=== PATIENT | male | born 1960 | race Caucasian/White ===

== ENCOUNTER 2020-01-23 10:31 | Inpatient (IN) | payer OTHER ==
--- NOTE | 2020-01-23 14:17 | HP ---
SUPERVISING PHYSICIAN: Gadiel Hillman MD CHIEF COMPLAINT: COVID infection with worsening shortness of breath. HISTORY OF PRESENT ILLNESS: Mr. Rolon is a 59-year-old male patient that was recently diagnosed with COVID-19 infection and was treated on 01/23/20 with azithromycin. He was actually seen on 01/16/20 via Telemedicine and tested at that point and found to be positive for coronavirus. He does have a significant medical history for diabetes, hypertension and having been treated in the past for non-Hodgkin lymphoma. He endorsed that he has been having general fatigue, dizziness, diarrhea which is persistent and worsening shortness of breath with productive cough. It seems like he is not moving a lot of air at times and actually at one point was almost ready to call 911 but actually went to the walk-in clinic. He was seen by Telemedicine by Dr. Terrell today with labs showing white count 10,900 with a left shift and inflammatory markers significantly elevated with ESR 110, C-reactive protein 16.8. D-dimer was elevated at 679 as well as fibrinogen. Kidney functions show creatinine 1.33. Dr. Terrell requested the patient be admitted for COVID pneumonia for further workup and evaluation as on his Telemedicine visit the patient was obviously dyspneic and looked to be in mild respiratory distress. On admission, the patient was not in distress, he was alert and fairly stable. PAST MEDICAL HISTORY: 1. Non-Hodgkin lymphoma first diagnosed in 2013 and treated to cure, released in 2019 after chemotherapy. 2. Hypertension. 3. Diabetes mellitus, type 2, on oral therapy. 4. Coronary artery disease with 3 previous myocardial infarctions and stent placement. PAST SURGICAL HISTORY: 1. Appendectomy. 2. Port placement for chemotherapy with removal. MEDICATIONS: 1. Chlorthalidone 25 mg daily. 2. Aspirin 81 mg daily. 3. Brilinta 90 mg b.i.d. 4. Amlodipine 10 mg daily. 5. TriCor 48 mg daily. 6. Lipitor 80 mg b.i.d. 7. Prinivil 20 mg b.i.d. 8. Coreg 12.5 mg b.i.d. 9. Metformin 500 mg b.i.d. ALLERGIES: NO KNOWN DRUG ALLERGIES. FAMILY HISTORY: Reviewed and noncontributory. SOCIAL HISTORY: The patient lives in [place], [place]. He is . He currently works in the [employer]. He denies any alcohol or illicit drug use. He denies tobacco abuse. REVIEW OF SYSTEMS: CONSTITUTIONAL: Positive for general malaise, fevers, chills. No noted unintentional weight loss. HEENT: Positive for headache, nasal congestion and rhinorrhea. Negative for sore throats, earaches, vision changes. RESPIRATORY: As noted in history of present illness, increasing shortness of breath with cough, nonproductive. CARDIOVASCULAR: Negative for chest pain, palpitations or syncopal episodes. GASTROINTESTINAL: Positive for diarrhea. Negative for nausea, vomiting, constipation or abdominal pain. GENITOURINARY: Negative for dysuria, hematuria, polyuria. MUSCULOSKELETAL: Negative for arthralgias, joint swelling. SKIN: Negative for lesions, rashes, moles or unexplained changes. NEUROLOGIC: Negative for ataxia, seizures, headaches, vision changes, syncopal episodes, other focal motor deficits. HEMATOLOGIC: Negative for easy bruising, unexplained bleeding or transfusion reactions. PHYSICAL EXAMINATION: VITAL SIGNS: On initial admission, temperature 97.6, pulse 92, blood pressure 134/74, respirations 18 to 22, 90% saturation on room air. GENERAL: The patient does look ill, overall does not feel well. He is alert. He does not look to be in any distress. HEENT: Tympanic membranes clear bilaterally. Oropharynx is pink, mildly dry mucous membranes. NECK: Supple, nontender with full range of motion. No jugular venous distention noted. RESPIRATORY: Lung sounds are significantly diminished on the right compared to the left with a little bit of wheezing and rhonchi heard in the middle [place] on the right. Diminished towards bilateral bases. CARDIOVASCULAR: Regular rate and rhythm without any appreciable murmurs, gallops, or rubs. ABDOMEN: Soft, nontender. Positive bowel sounds. MUSCULOSKELETAL: There is no cyanosis, clubbing or edema. NEUROLOGIC: Cranial nerves II-XII are grossly intact. Facial features are symmetrical. Extraocular movements are within normal limits. There is no nystagmus noted. The patient is alert and oriented times three. SKIN: Warm, pink and dry. LABORATORY: CBC showed white count 10,900, hemoglobin 13, hematocrit 37.4, platelet count 335,000. Differential does show a left shift. Sedrate elevated at 110. Coagulation studies showed normal PT at 9.7, fibrinogen 774, D-dimer elevated at 679. Initial chemistries showed sodium 131, blood sugar 134, potassium 4.3, BUN 27, creatinine 1.33, magnesium 1.5, calcium normal at 9.3, lactic acid normal at 1.4, bilirubin slightly elevated at 1.3 with indirect 1.1. All other liver functions were within normal limits. C-reactive protein initially 16.8. Troponin 0.02. BNP normal at 34. Urinalysis pending. MICROBIOLOGY: Nasal swab was positive for COVID. RADIOLOGY: Chest x-ray on admission showed no consolidating infiltrates evident on the chest x-ray. This was followed up with CT of the chest and per radiologic interpretation showed no definite evidence of pulmonary embolic disease. There was peripheral pulmonary infiltrates consistent with pneumonia. Prominent hilar and mediastinal lymph nodes likely reactive. ASSESSMENT: 1. Right sided pneumonia secondary to COVID pneumonitis. 2. COVID pneumonia contributing to #1, failing to respond to initial outpatient treatment plan with mild hypoxia on room air. 3. Elevated D-dimer, likely secondary to recent COVID infection with CT of the chest not showing any indication of acute pulmonary embolus. 4. Electrolyte imbalance to include moderate magnesemia along with hyponatremia. 5. Renal insufficiency underlying dehydration due to prerenal azotemia. 6. Persistent diarrhea, likely due to ongoing COVID infection. 7. History of non-Hodgkin lymphoma treated to cure and released from oncology in 2019. 8. History of hypertension. 9. History of diabetes mellitus, type 2, on oral therapy. PLAN: Mr. Rolon is going to be directly admitted from Dr. Terrell's office as he was showing significant failure to respond to treatment after being diagnosed with COVID pneumonitis on 01/16/20. He did retest again today on admission and was positive for COVID via rapid test. He was given a Z-Quinten. We will continue azithromycin and start him on Decadron as well as Lovenox at this point 40 gm q daily and follows his labs closely. He will be on aggressive pulmonary hygiene with albuterol inhaler treatments. Given that he still has active infection and probably significant viral load, we will start him on Remdesivir. He will be given oxygen to maintain his O2 saturation 92-96%. I anticipate his length of stay to be 2 to 3 days if he responds to treatment. If not, we will anticipate longer stay depending on how he trends his labs and how he does clinically. If he does show a trend in his labs over the worsening and increasing need of FIO2 requirements, certainly we will look to transfer him to [facility] to continue care in their pulmonary unit. At this point, he appears to be fairly stable and we will see how he responds to treatment over the 24 to 48 hours. We will resume his home medications once they have been updated and verified. He is on insulin sliding scale. I will go ahead and give him extra coverage with a.c. 5 units as well as start on Levemir 15 units b.i.d. in anticipation of elevated blood sugars along with the Decadron administration. He is a little dry, so we will give him some fluids in the form of banana bag 1 liter cautiously and monitor his respiratory efforts and chest x-ray in the morning. As soon as it looks like he is taking adequate fluids, we will certainly keep him saline locked. I think at this point, he would benefit from some fluids acutely to help with his renal function. We will continue to monitor his labs. Until the patient can transition to outpatient management, we will continue to monitor and treat as needed. #[id number] [facility]
[2020-01-23] MEDS ORDERED: ACETAMINOPHEN 325 MG TAB PO PRN (14:26)
[2020-01-23] MEDS ORDERED: ONDANSETRON INJ 4 MG/2 ML VIAL IV PRN (14:26)
[2020-01-23] MEDS ORDERED: SODIUM CHLORIDE 0.9% (FLUSH) 10 ML SYG IV PRN (14:26)
[2020-01-23] MEDS ORDERED: DEXAMETHASONE INJ 10 MG/ML VIAL IV ONE (14:31)
[2020-01-23] MEDS ORDERED: ALBUTEROL INHALER 64 PUFF/8GM INH PRN (14:31)
[2020-01-23] MEDS ORDERED: guaiFENesin W/CODEINE LIQ 10 ML UD PO PRN (14:33)
[2020-01-23] MEDS: ALBUTEROL INHALER 64 PUFF/8GM INH SCH ×2 (16:20→20:30)
[2020-01-23] MEDS ORDERED: MAGNESIUM SULFATE PREMIX 2GM 2 GM in PREMIX BAG 1 BAG IVPB ONE (16:24)
[2020-01-23] MEDS ORDERED: GLUCAGON INJ 1 MG VIAL SUBCU PRN (16:24)
[2020-01-23] MEDS ORDERED: DEXTROSE 50% 25 GM/50 ML SYG IV PRN (16:24)
[2020-01-23] MEDS: cefTRIAXone SODIUM 1 GM in SODIUM CHL 0.9% 50ML MIN-BAG+ 50 ML IVPB SCH (16:33)
[2020-01-23] MEDS: IV SET AND CAP CHANGE INJ INJ SCH (16:36)
[2020-01-23] MEDS: INSULIN LISPRO 100 UNITS/ML PEN SUBCU SCH ×2 (16:36→21:29)
--- NOTE | 2020-01-23 16:46 | CT ---
EXAM DESCRIPTION: CTA Chest CLINICAL HISTORY: 59 years, Male, COVID Postive 01/15; elvatged D-dimer COMPARISON: None TECHNIQUE: CT pulmonary angiography is performed with thin-section multi detector technique during rapid bolus administration of Isovue 300 IV contrast media. Multiplanar reformatted images are reviewed along with source images and maximum intensity projection three dimensional images which were created on a separate dedicated workstation and are stored in the patient's medical record. FINDINGS: Normal enhancement of pulmonary arteries. Normal enhancement of cardiac chambers. Heart is large with extensive coronary calcification. Early enhancement of the aorta is negative for aneurysm or dissection. Prominent mediastinal lymph nodes are likely reactive. Largest node in the subcarinal region has a short axis dimensional measurement of 1.2 cm. A left hilar lymph node is prominent with short axis dimension measurement of 1 cm. Lung window images are positive for patchy bilateral peripheral infiltration of the lungs with configuration consistent with clinical diagnosis of COVID positive pneumonia. No worrisome mass or nodule. In the upper abdomen, upper abdominal viscera are unremarkable. No chest wall mass or rib fracture. No axillary or lower cervical adenopathy. Inhomogeneous thyroid gland could be further evaluated with sonography. Coronal and sagittal reformatted MIP images confirm normal pulmonary arterial enhancement. No central pulmonary embolus. Motion artifacts obscure the peripheral smaller vessels in both lower and upper lobes. IMPRESSION: No definite evidence of pulmonary embolic disease. Peripheral pulmonary infiltrates consistent with pneumonia. Prominent hilar and mediastinal lymph nodes likely reactive. This exam was performed according to our departmental dose-optimization program, which includes automated exposure control, adjustment of the mA and/or kV according to patient size and/or use of iterative reconstruction technique. Total DLP equals 964.77 mGycm. Electronically signed by: Shade Cortez MD 01/23/2020 4:44 PM CDT
--- NOTE | 2020-01-23 16:48 | RAD ---
EXAM DESCRIPTION: Chest,2 Views CLINICAL HISTORY: COVID COMPARISON: CTA chest performed same day TECHNIQUE: PA/lateral FINDINGS: There is no acute appearing cardiac or pulmonary abnormality. Heart size is normal with normal pulmonary vascularity. No pleural effusion or pneumothorax. Peripheral pulmonary infiltrate seen on CT are very difficult to identify on the chest x-ray.. Lateral view shows intact sternum and prominent spurring in the mid to lower T-spine. IMPRESSION: No consolidating infiltrate is evident on the chest x-ray. See separate CTA chest report. Electronically signed by: Shade Cortez MD 01/23/2020 4:45 PM CDT
[2020-01-23] MEDS: AZITHROMYCIN IV 500 MG in SODIUM CHLORIDE 0.9% 250ML 250 ML IVPB SCH (16:50)
[2020-01-23] MEDS ORDERED: LOPERAMIDE CAP 2 MG CAP PO ONE (19:50)
[2020-01-23] MEDS ORDERED: MULTIPLE VITAMIN INJ 10 ML, FOLIC ACID INJ 1 MG in SODIUM CHLORIDE 0.9% 1000ML 1,000 ML IVS ONE (19:52)
[2020-01-23] MEDS ORDERED: FOLIC ACID INJ 5 MG/ML VIAL ONE (20:15)
[2020-01-23] MEDS: NON-FORMULARY MEDICATION 1 EA MIS (Lisinopril [Prinivil] 20 MG) PO SCH (20:27)
[2020-01-23] MEDS: ENOXAPARIN SODIUM 40 MG/0.4 ML SYG SUBCU SCH (20:27)
[2020-01-23] MEDS: CARVEDILOL 12.5 MG TAB PO SCH (20:27)
[2020-01-23] MEDS: NON-FORMULARY MEDICATION 1 EA MIS (Ticagrelor [Brilinta] 90 MG) PO SCH (20:28)
[2020-01-23] MEDS ORDERED: FENOFIBRATE 48 MG PO SCH (21:00)
[2020-01-23] MEDS ORDERED: REMDESIVIR 200 MG in SODIUM CHLORIDE 0.9% 250ML 250 ML IVPB SCH (21:00)
[2020-01-23] MEDS ORDERED: NON-FORMULARY MEDICATION 1 EA MIS (Atorvastatin Calcium [Lipitor] 80 MG) PO SCH (21:00)
[2020-01-23] MEDS: metFORMIN HCL 500 MG TAB PO SCH (21:19)
[2020-01-23] MEDS ORDERED: SODIUM CHLORIDE 0.9% 250ML 250 ML ONE (21:27)
[2020-01-23] MEDS: INSULIN DETEMIR 100 UNITS/ML PEN SUBCU SCH (21:30)
[2020-01-23] MEDS ORDERED: LISINOPRIL 10 MG TAB ONE (22:23)
[2020-01-23] MEDS ORDERED: SODIUM CHLORIDE 0.9% 1000ML 1,000 ML ONE (22:23)
[2020-01-23] MEDS ORDERED: ATORVASTATIN 20 MG TAB PO ONE (22:23)
[2020-01-23] MEDS ORDERED: MULTIPLE VITAMIN 10 ML VIAL ONE (22:24)
[2020-01-24] MEDS ORDERED: PANTOPRAZOLE SODIUM IV 40 MG VIAL ONE (04:40)
[2020-01-24] MEDS ORDERED: PANTOPRAZOLE SODIUM IV 40 MG VIAL IV SCH (06:30)
[2020-01-24] MEDS: INSULIN LISPRO 100 UNITS/ML PEN SUBCU SCH ×4 (07:40→21:08)
[2020-01-24] MEDS: ALBUTEROL INHALER 64 PUFF/8GM INH SCH ×4 (08:22→21:15)
[2020-01-24] MEDS ORDERED: DEXAMETHASONE INJ 10 MG/ML VIAL ONE (08:33)
[2020-01-24] MEDS ORDERED: ASPIRIN (CHEWABLE) 81 MG TAB ONE (08:33)
[2020-01-24] MEDS ORDERED: amLODIPine BESYLATE 5 MG TAB ONE (08:33)
[2020-01-24] MEDS: DEXAMETHASONE INJ 10 MG/ML VIAL IV SCH (08:34)
[2020-01-24] MEDS ORDERED: CARVEDILOL 12.5 MG TAB ONE (08:34)
[2020-01-24] MEDS: ASPIRIN (CHEWABLE) 81 MG TAB PO SCH (08:34)
[2020-01-24] MEDS: CARVEDILOL 12.5 MG TAB PO SCH ×2 (08:34→20:55)
[2020-01-24] MEDS: amLODIPine BESYLATE 5 MG TAB PO SCH (08:34)
[2020-01-24] MEDS: metFORMIN HCL 500 MG TAB PO SCH ×3 (08:35→16:02)
[2020-01-24] MEDS ORDERED: LISINOPRIL 10 MG TAB ONE (08:36)
[2020-01-24] MEDS: NON-FORMULARY MEDICATION 1 EA MIS (Lisinopril [Prinivil] 20 MG) PO SCH (08:36)
[2020-01-24] MEDS: INSULIN DETEMIR 100 UNITS/ML PEN SUBCU SCH ×2 (08:41→20:56)
[2020-01-24] MEDS: CHLORTHALIDONE 25 MG TAB PO SCH (08:56)
[2020-01-24] MEDS: ATORVASTATIN 20 MG TAB PO SCH ×2 (08:56→20:55)
[2020-01-24] MEDS: LISINOPRIL 10 MG TAB PO SCH ×2 (08:59→20:55)
[2020-01-24] MEDS: NON-FORMULARY MEDICATION 1 EA MIS (Ticagrelor [Brilinta] 90 MG) PO SCH ×2 (09:00→20:58)
[2020-01-24] MEDS ORDERED: SODIUM CHLORIDE 0.9% 250ML 250 ML ONE (09:07)
[2020-01-24] MEDS: REMDESIVIR 100 MG in SODIUM CHLORIDE 0.9% 250ML 250 ML IVPB SCH (09:08)
[2020-01-24] MEDS: cefTRIAXone SODIUM 1 GM in SODIUM CHL 0.9% 50ML MIN-BAG+ 50 ML IVPB SCH (14:36)
[2020-01-24] MEDS: AZITHROMYCIN IV 500 MG in SODIUM CHLORIDE 0.9% 250ML 250 ML IVPB SCH (15:13)
--- NOTE | 2020-01-24 15:21 | PN ---
SUPERVISING PHYSICIAN: Gadiel Hillman MD DATE: 01/24/20 SUBJECTIVE: The patient reports he is feeling better. He is breathing a little easier today. He has had no chest pain. He has been afebrile overnight. He has no further complaints. OBJECTIVE: VITAL SIGNS: Temperature 97.8, pulse 64, blood pressure 131/77, respirations 18, saturation 97% on 2 liters nasal cannula. GENERAL: The patient is resting comfortably, not in any obvious acute distress. He is alert. CHEST: Lung sounds are a little bit diminished towards the bases. He still has some rhonchi heard on the right. Left is fairly clear. There is some mild inspiratory and expiratory wheezing heard bilaterally. HEART: Regular rate and rhythm. ABDOMEN: Soft, nontender. Positive bowel sounds. EXTREMITIES: No edema. NEUROLOGIC: Alert and oriented times three. LABORATORY: White count 6,600, hemoglobin 12.5, hematocrit 36.1, platelet count 339,000. Differential without a left shift. Lymphocytes are low. Coagulation studies showed fibrinogen 871, D-dimer down to 458. Chemistries today show sodium 133 corrected to 136 with a glucose of 311, potassium 4.0, BUN 24, creatinine 1.0. Blood sugars ranging between 136 and 311. Calcium 8.6. Magnesium is normal at 2.1. Liver functions within normal limits. LDH is normal at 150. C-reactive protein is down slightly to 15.2. Albumin normal at 3.2. MICROBIOLOGY: No additional specimens. RADIOLOGY: No additional radiographic studies today. ASSESSMENT: 1. Right sided pneumonia secondary to COVID pneumonitis. 2. COVID pneumonia contributing to #1, failing to respond to initial outpatient treatment plan with mild hypoxia on room air. 3. Elevated D-dimer, likely secondary to recent COVID infection with CT of the chest not showing any indication of acute pulmonary embolus. 4. Electrolyte imbalance to include moderate magnesemia along with hyponatremia. 5. Renal insufficiency underlying dehydration due to prerenal azotemia. 6. Persistent diarrhea, likely due to ongoing COVID infection. 7. History of non-Hodgkin lymphoma treated to cure and released from oncology in 2019. 8. History of hypertension. 9. History of diabetes mellitus, type 2, on oral therapy. PLAN: We will continue current plan of care with Decadron, Rocephin, azithromycin, albuterol inhaler. He remains on sliding scale insulin with additional coverage at a.c. and h.s. and on Levemir. We did give him a banana bag last night and he looks a little better today. We will hold off on any additional fluids. We will continue to monitor and treat as needed. Hopefully, we can transition to outpatient management within the next 2 to 3 days. #[id number] MTDD
[2020-01-24] MEDS ORDERED: FENOFIBRIC ACID 135 MG CAP ONE (19:27)
[2020-01-24] MEDS: FENOFIBRIC ACID 135 MG CAP PO SCH (20:55)
[2020-01-24] MEDS: ENOXAPARIN SODIUM 40 MG/0.4 ML SYG SUBCU SCH (20:56)
[2020-01-25] MEDS ORDERED: PANTOPRAZOLE SODIUM TAB 40 MG PO ONE (04:19)
[2020-01-25] MEDS: PANTOPRAZOLE SODIUM TAB 40 MG PO SCH (06:03)
[2020-01-25] MEDS: metFORMIN HCL 500 MG TAB PO SCH ×2 (07:05→17:03)
[2020-01-25] MEDS ORDERED: SODIUM CHLORIDE 0.9% 250ML 250 ML ONE (07:55)
[2020-01-25] MEDS: INSULIN LISPRO 100 UNITS/ML PEN SUBCU SCH ×5 (07:57→22:08)
[2020-01-25] MEDS: CHLORTHALIDONE 25 MG TAB PO SCH ×3 (07:59→08:50)
--- NOTE | 2020-01-25 08:14 | RAD ---
EXAM DESCRIPTION: Chest,1 View CLINICAL HISTORY: 59 years Male COVID PNA COMPARISON: Two-view chest dated 01/23/2020 TECHNIQUE: Portable AP view of the chest is obtained. FINDINGS IN THE CHEST: Heart: Allowing for magnification factors related to AP portable technique and body habitus, the heart is normal in size and configuration. Vasculature: [] There is no evidence of aortic aneurysm or acute findings. The pulmonary vascularity is normal. Mediastinum: No evidence of mass or adenopathy. Lungs: The study is obtained during a suboptimal depth of inspiration with resultant decreased lung volumes. Small focal infiltrate noted in the left lower lung laterally concerning for atelectasis and/or pneumonia versus layering pleural fluid. Pleura: There is blunting of the left costophrenic angle consistent with minimal pleural fluid. There are no pneumothoraces. Osseous structures: No evidence of acute fracture, osteolytic lesions or osteoblastic lesions. There are diffuse enthesopathic changes, including a rolling pattern of ossification in the spine, consistent with diffuse idiopathic skeletal hyperostosis (DISH). Tubes and catheters: None Chest wall: Unremarkable. Visualized Abdomen: Unremarkable. IMPRESSION: Small focal infiltrate noted in the left lower lung laterally concerning for atelectasis and/or pneumonia versus layering pleural fluid. Remainder of findings as described above. Electronically signed by: Agueda Willis MD 01/25/2020 8:13 AM CDT
[2020-01-25] MEDS: ALBUTEROL INHALER 64 PUFF/8GM INH SCH ×4 (08:33→20:14)
[2020-01-25] MEDS: BIFIDOBACTERIUM INFANTIS 4 MG CAP PO SCH (08:50)
[2020-01-25] MEDS: ASPIRIN (CHEWABLE) 81 MG TAB PO SCH (08:50)
[2020-01-25] MEDS: CARVEDILOL 12.5 MG TAB PO SCH ×2 (08:50→20:18)
[2020-01-25] MEDS: amLODIPine BESYLATE 5 MG TAB PO SCH (08:50)
[2020-01-25] MEDS: ATORVASTATIN 20 MG TAB PO SCH ×2 (08:51→20:18)
[2020-01-25] MEDS: DEXAMETHASONE INJ 10 MG/ML VIAL IV SCH (08:51)
[2020-01-25] MEDS: INSULIN DETEMIR 100 UNITS/ML PEN SUBCU SCH ×2 (08:51→22:09)
[2020-01-25] MEDS: LISINOPRIL 10 MG TAB PO SCH ×2 (08:51→20:17)
[2020-01-25] MEDS: NON-FORMULARY MEDICATION 1 EA MIS (Ticagrelor [Brilinta] 90 MG) PO SCH ×2 (08:52→20:19)
[2020-01-25] MEDS: REMDESIVIR 100 MG in SODIUM CHLORIDE 0.9% 250ML 250 ML IVPB SCH (08:52)
[2020-01-25] MEDS ORDERED: LOPERAMIDE CAP 2 MG CAP PO ONE (09:06)
--- NOTE | 2020-01-25 11:20 | PN ---
SUPERVISING PHYSICIAN: Gadiel Hillman MD DATE: 01/25/20 SUBJECTIVE: The patient notes he is feeling a little better today, still a little short of breath when he ambulates. His oxygenation is not quite as demanding today. His vitals are looking better. He has been afebrile overnight. OBJECTIVE: VITAL SIGNS: Temperature 97.7, pulse 57, blood pressure 135/81, respirations 18, saturation 97% on 2 liters nasal cannula at rest. GENERAL: The patient is resting comfortably, does not to look to be in any distress. . CHEST: Sounds are much improved today, just a little diminished towards the bases bilaterally, no obvious rhonchi, rales, or wheezes noted./ HEART: Regular rate and rhythm. ABDOMEN: Soft, nontender. Positive bowel sounds. EXTREMITIES: No edema. NEUROLOGIC: Alert and oriented times three. LABORATORY: White count did go up today to 14,500, hemoglobin 12.7, hematocrit 36.7, platelet count 399,000. Differential showing left shift today. Coagulation studies showed improving fibrinogen down to 745. D-dimer returning to baseline levels at 402. PTT remains normal at 25.5. Chemistries show sodium 133 corrected to 136 for a glucose of 237. Blood sugars have been ranging between 190 and 330. Potassium normal at 3.9, BUN 27, creatinine 1.0. Liver functions within normal limits. Troponin less than 0.02. Albumin showing to be low at 3.1. RADIOLOGY: Repeat chest x-ray today per radiology interpretation shows small focal infiltrate noted in the left lower lung laterally, concerning for atelectasis and/or pneumonia versus laying of pleural fluid. Remainder of findings described indicate low lung volume on inspiration, blunting left costophrenic angle consistent with minimal pleural fluid, no pneumothoraces. ASSESSMENT: 1. Right sided pneumonia secondary to COVID pneumonitis. 2. COVID pneumonia contributing to #1, failing to respond to initial outpatient treatment plan with mild hypoxia on room air. 3. Elevated D-dimer, likely secondary to recent COVID infection with CT of the chest not showing any indication of acute pulmonary embolus. 4. Electrolyte imbalance to include moderate hypomagnesemia improved with replacement with a mild hyponatremia. 5. Renal insufficiency secondary to prerenal azotemia, now resolved at baseline levels. 6. Persistent diarrhea, likely due to ongoing COVID infection. 7. History of non-Hodgkin lymphoma treated to cure and released from oncology in 2019. 8. Chronic hypotension showing to be stable. 9. History of diabetes mellitus, type 2, on oral therapy. PLAN: We will continue plan of care at this point with Decadron, Rocephin, azithromycin, albuterol inhaler and Remdesivir. He is showing good improvement. I would anticipate either we can discharge tomorrow or Monday but I think honestly he needs to be here until Monday so he can finish his full course of Remdesivir and insure his oxygenation still remains within good limits. Will follow his labs per protocol. Until we can transition patient to outpatient management, we will continue to monitor and treat as needed #[id number] MTDD
[2020-01-25] MEDS: cefTRIAXone SODIUM 1 GM in SODIUM CHL 0.9% 50ML MIN-BAG+ 50 ML IVPB SCH (14:19)
[2020-01-25] MEDS: AZITHROMYCIN IV 500 MG in SODIUM CHLORIDE 0.9% 250ML 250 ML IVPB SCH (14:54)
[2020-01-25] MEDS: FENOFIBRIC ACID 135 MG CAP PO SCH (20:17)
[2020-01-25] MEDS: ENOXAPARIN SODIUM 40 MG/0.4 ML SYG SUBCU SCH (20:18)
[2020-01-26] MEDS: PANTOPRAZOLE SODIUM TAB 40 MG PO SCH (05:43)
[2020-01-26] MEDS ORDERED: SODIUM CHLORIDE 0.9% 250ML 250 ML ONE (07:10)
[2020-01-26] MEDS: metFORMIN HCL 500 MG TAB PO SCH ×2 (07:23→17:29)
[2020-01-26] MEDS: INSULIN LISPRO 100 UNITS/ML PEN SUBCU SCH ×4 (07:58→21:43)
[2020-01-26] MEDS: ALBUTEROL INHALER 64 PUFF/8GM INH SCH ×4 (08:15→20:10)
[2020-01-26] MEDS: LISINOPRIL 10 MG TAB PO SCH ×2 (09:01→21:44)
[2020-01-26] MEDS: amLODIPine BESYLATE 5 MG TAB PO SCH (09:01)
[2020-01-26] MEDS: BIFIDOBACTERIUM INFANTIS 4 MG CAP PO SCH (09:01)
[2020-01-26] MEDS: REMDESIVIR 100 MG in SODIUM CHLORIDE 0.9% 250ML 250 ML IVPB SCH (09:01)
[2020-01-26] MEDS: CARVEDILOL 12.5 MG TAB PO SCH ×2 (09:01→21:43)
[2020-01-26] MEDS: ASPIRIN (CHEWABLE) 81 MG TAB PO SCH (09:01)
[2020-01-26] MEDS: ATORVASTATIN 20 MG TAB PO SCH ×2 (09:01→21:44)
[2020-01-26] MEDS: CHLORTHALIDONE 25 MG TAB PO SCH (09:01)
[2020-01-26] MEDS: DEXAMETHASONE INJ 10 MG/ML VIAL IV SCH (09:02)
[2020-01-26] MEDS: INSULIN DETEMIR 100 UNITS/ML PEN SUBCU SCH ×2 (09:02→21:43)
[2020-01-26] MEDS: NON-FORMULARY MEDICATION 1 EA MIS (Ticagrelor [Brilinta] 90 MG) PO SCH ×2 (09:11→21:46)
[2020-01-26] MEDS: cefTRIAXone SODIUM 1 GM in SODIUM CHL 0.9% 50ML MIN-BAG+ 50 ML IVPB SCH (14:30)
[2020-01-26] MEDS: IV SET AND CAP CHANGE INJ INJ SCH (14:31)
[2020-01-26] MEDS: AZITHROMYCIN IV 500 MG in SODIUM CHLORIDE 0.9% 250ML 250 ML IVPB SCH (17:28)
[2020-01-26] MEDS: ENOXAPARIN SODIUM 40 MG/0.4 ML SYG SUBCU SCH (21:44)
[2020-01-26] MEDS: FENOFIBRIC ACID 135 MG CAP PO SCH (21:46)
[2020-01-27] MEDS: PANTOPRAZOLE SODIUM TAB 40 MG PO SCH (06:04)
[2020-01-27] MEDS ORDERED: MAGNESIUM SULFATE PREMIX 2GM 2 GM in PREMIX BAG 1 BAG IVPB ONE (08:10)
[2020-01-27] MEDS: ALBUTEROL INHALER 64 PUFF/8GM INH SCH ×3 (08:23→17:16)
--- NOTE | 2020-01-27 08:33 | PN ---
SUPERVISING PHYSICIAN: Gadiel Hillman MD DATE: 01/26/20 SUBJECTIVE: The patient notes is doing well. He is now on room air. He remains afebrile. He has not complaints, no nausea or vomiting, no diarrhea. OBJECTIVE: VITAL SIGNS: Temperature 98.1, pulse 62, blood pressure 134/81, respirations 18, saturation 95% on room air. GENERAL: The patient looks to be resting comfortably and in no acute distress. . CHEST: Lung sounds are fairly clear, just a little diminished towards the bases. I do not hear any rhonchi, rales, or wheezes noted. HEART: Regular rate and rhythm. ABDOMEN: Soft, nontender. Positive bowel sounds. EXTREMITIES: No edema. NEUROLOGIC: Alert and oriented times three. LABORATORY: White count still remains elevated at 14,400, hemoglobin 12.2, hematocrit 34.9, platelet count 429,000. Differential does show a left shift. Coagulation studies showed D-dimer nearly to baseline levels, yesterday at 402, will repeat one tomorrow. Chemistries show stable electrolytes. Creatinine 0.99, blood sugar range between 201 and 324. Magnesium a little low at 1.7. Calcium 8.8. RADIOLOGY: No additional radiographic studies today, ASSESSMENT: 1. Right sided pneumonia secondary to COVID pneumonitis. 2. COVID pneumonia contributing to #1, failing to respond to initial outpatient treatment plan with mild hypoxia on room air. 3. Elevated D-dimer, likely secondary to recent COVID infection with CT of the chest not showing any indication of acute pulmonary embolus. 4. Electrolyte imbalance to include moderate hypomagnesemia improved with replacement with a mild hyponatremia. 5. Renal insufficiency secondary to prerenal azotemia, now resolved at baseline levels. 6. Persistent diarrhea, likely due to ongoing COVID infection. 7. History of non-Hodgkin lymphoma treated to cure and released from oncology in 2019. 8. Chronic hypotension showing to be stable. 9. History of diabetes mellitus, type 2, on oral therapy. PLAN: The patient is doing well on room air. He does remain on Decadron, Rocephin, azithromycin, albuterol inhaler and should finish up his Remdesivir tomorrow. I think that will be his last dose. He should be able to discharge home to followup with Dr. Terrell. Until then, we will continue to monitor and treat as needed. #[id number] MTDD
[2020-01-27] MEDS ORDERED: MAGNESIUM SULFATE PREMIX 2GM 50 ML IVPB ONE (08:35)
[2020-01-27] MEDS ORDERED: SODIUM CHL 0.9% 250ML (AVIVA) 250 ML IVPB ONE (08:37)
[2020-01-27] MEDS: INSULIN DETEMIR 100 UNITS/ML PEN SUBCU SCH (08:45)
[2020-01-27] MEDS: INSULIN LISPRO 100 UNITS/ML PEN SUBCU SCH ×2 (08:45→12:17)
[2020-01-27] MEDS: LISINOPRIL 10 MG TAB PO SCH (08:46)
[2020-01-27] MEDS: ASPIRIN (CHEWABLE) 81 MG TAB PO SCH (08:46)
[2020-01-27] MEDS: CHLORTHALIDONE 25 MG TAB PO SCH (08:46)
[2020-01-27] MEDS: CARVEDILOL 12.5 MG TAB PO SCH (08:46)
[2020-01-27] MEDS: BIFIDOBACTERIUM INFANTIS 4 MG CAP PO SCH (08:46)
[2020-01-27] MEDS: amLODIPine BESYLATE 5 MG TAB PO SCH (08:46)
[2020-01-27] MEDS: ATORVASTATIN 20 MG TAB PO SCH (08:49)
[2020-01-27] MEDS: metFORMIN HCL 500 MG TAB PO SCH (08:49)
[2020-01-27] MEDS: DEXAMETHASONE INJ 10 MG/ML VIAL IV SCH (08:49)
[2020-01-27] MEDS: NON-FORMULARY MEDICATION 1 EA MIS (Ticagrelor [Brilinta] 90 MG) PO SCH (08:50)
[2020-01-27] MEDS: REMDESIVIR 100 MG in SODIUM CHLORIDE 0.9% 250ML 250 ML IVPB SCH (08:50)
[2020-01-27 17:58] VITALS: BP 132/84; TEMP 97.6; O2SAT 93
--- NOTE | 2020-01-29 08:05 | DS ---
SUPERVISING PHYSICIAN: Evans Astudillo MD DISCHARGE DIAGNOSIS: 1. Right sided pneumonia secondary to COVID pneumonitis. 2. COVID pneumonia contributing to #1, failing to respond to initial outpatient treatment plan with mild hypoxia on room air. 3. Elevated D-dimer, likely secondary to recent COVID infection. 4. Electrolyte imbalance, improved. 5. Renal insufficiency secondary to prerenal azotemia, now at baseline. 6. Persistent diarrhea, likely due to ongoing COVID infection. 7. History of non-Hodgkin lymphoma treated to cure. 8. Chronic hypotension, stable. 9. History of diabetes mellitus, type 2. HISTORY OF PRESENT ILLNESS: This is a 59-year-old male patient that was recently diagnosed with COVID-19 infection and was treated on 01/23/20 with azithromycin. He was actually seen on 01/16/20 via Telemedicine and was tested and found to be positive for coronavirus. He does have a significant medical history for diabetes, hypertension and having been treated in the past for non- Hodgkin lymphoma. He had had fatigue, dizziness, diarrhea which was persistent and worsening shortness of breath with productive cough. He felt like he was not moving a lot of air and was going call 911, but went to the walk-in clinic. He was seen by Telemedicine by Dr. Terrell. WBCs 10,900 with a left shift and inflammatory markers significantly elevated with ESR 110, C-reactive protein 16.8. D-dimer was elevated at 679. Kidney functions show creatinine 1.33. The patient was directly admitted from Dr. Terrell's office for COVID pneumonia for further workup and aggressive treatment. He was initially obviously dyspneic and in mild respiratory distress. HOSPITAL COURSE: The patient was admitted with COVID pneumonitis and was continued per COVID-19 protocol with azithromycin and then started on Rocephin as well as Decadron. He was given Lovenox for DVT prophylaxis as well as given Remdesivir. His oxygen saturation was maintained above 92% on supplemental oxygen. His labs were closely followed and his lab trends improved. His home medications were restarted. He was on insulin sliding scale. He was also given judicious fluids and monitor closely. He slowly improved clinically as well as his vital signs and his lab studies. He was weaned off of oxygen. Today, he received his last dosing of Remdesivir and will be discharged to home in stable condition. LABORATORY: WBCs 10,900 and went down to 6.6 and are up to 14.4. Hemoglobin and hematocrit are stable at 12.2 and 34.9. He continues to have a left shift on his differential. PT and PTT were stable. Fibrinogen was 774, went up to 871 and is now 745. D-dimer was 679 and went down to 402. Electrolytes were basically within normal limits. His creatinine did go down to 0.99. Magnesium was low at 1.7 and was replaced. C-reactive protein is down to 7.8. His final chest x-ray showed small focal infiltrate noted in the left lower lung laterally concerning for atelectasis and/or pneumonia versus layering pleural fluid. His initial CTA of the chest showed no definite evidence of pulmonary embolic disease, peripheral pulmonary infiltrates consistent with pneumonia, prominent hilar and mediastinal lymph nodes, likely reactive. DISCHARGE PLAN: The patient will be discharged home in stable condition. He is to resume his previous diet and increase his activity as tolerated. In addition to his home medications, he will be on cefdinir for 7 days, dexamethasone for 5 days, Eliquis for 30 days and azithromycin for 4 days. He should make a followup appointment with Dr. Terrell within the next 1 to 2 weeks. He is to return to the hospital or followup with Dr. Terrell for any problems or complications. DISCHARGE MEDICATIONS: 1. Carvedilol. 2. Metformin. 3. Lisinopril. 4. Atorvastatin. 5. TriCor. 6. Amlodipine. 7. Brilinta. 8. Aspirin. 9. Chlorthalidone. 10. Align. 11. Cefdinir. 12. Decadron. 13. Eliquis. 14. Albuterol inhaler. 15. Azithromycin. #[id number] [facility]
== END 2020-01-27 16:55 | disposition home or self-care (01) | DRG 177 ==
LOC: LAB.O 10:31 → OBSVTOIN 14:16 → MS 14:16
PROVIDERS: ADMIT Nurse Practitioner Family; ATTEND Nurse Practitioner Acute Care
PROC: B32T1ZZ Computerized Tomography (CT Scan) of Left Pulmonary Artery using Low Osmolar Contrast (ICD-10-PCS; principal; 2020-01-23)
PROC: B32S1ZZ Computerized Tomography (CT Scan) of Right Pulmonary Artery using Low Osmolar Contrast (ICD-10-PCS; 2020-01-23)
PROC: XW033E5 Introduction of Remdesivir Anti-infective into Peripheral Vein, Percutaneous Approach, New Technology Group 5 (ICD-10-PCS; 2020-01-23)
DX: U07.1 COVID-19 (principal); J12.89 Other viral pneumonia; A08.39 Other viral enteritis; E87.1 Hypo-osmolality and hyponatremia; I95.9 Hypotension, unspecified; E83.42 Hypomagnesemia; N28.9 Disorder of kidney and ureter, unspecified; E11.22 Type 2 diabetes mellitus with diabetic chronic kidney disease; Z85.72 Personal history of non-Hodgkin lymphomas; I10 Essential (primary) hypertension; I25.10 Atherosclerotic heart disease of native coronary artery without angina pectoris; I25.2 Old myocardial infarction; Z95.5 Presence of coronary angioplasty implant and graft; Z79.84 Long term (current) use of oral hypoglycemic drugs; Z79.82 Long term (current) use of aspirin; Z79.899 Other long term (current) drug therapy